=== PATIENT | female | born 1980 | race Caucasian/White ===

== ENCOUNTER 2019-11-25 20:16 | Emergency (ER) | payer MEDICAID ==
[2019-11-25] MEDS ORDERED: methylPREDNISolone Sodium Succinate 125 MG/2 ML SDV IVPUSH ONE (20:51)
[2019-11-25] MEDS ORDERED: cefTRIAXone 1 GM in Sodium Chloride 0.9% 50 ML IV ONE (20:51)
--- NOTE | 2019-11-25 20:57 | EDM.PDOC ---
ED HPI GENERAL MEDICAL PROBLEM - General Chief Complaint: ENT Problem Stated Complaint: TOOTH PAIN Time Seen by Provider: 11/25/19 20:45 Source of Information: Reports: Patient History Limitations: Reports: No Limitations - History of Present Illness INITIAL COMMENTS - FREE TEXT/NARRATIVE: 39-year-old female in a local detox center who has ongoing right maxillary dental pain and swelling despite being on clindamycin for the past week. No fevers or chills. Pain is not controlled with 600 mg of ibuprofen every 6 hours and Tylenol. She has responded well to Rocephin IV in the past. Onset: Gradual Duration: Week(s): (Ongoing problems for almost 2 weeks) Location: Reports: Face (Right maxillary facial area) Associated Symptoms: Denies: Fever/Chills, Nausea/Vomiting, Shortness of Breath Right Face/Facial Pain Score (Numeric/FACES): 8 - Related Data Allergies Allergy/AdvReac Type Severity Reaction Status Date / Time No Known Allergies Allergy Verified 11/25/19 20:28 Home Meds: Home Meds busPIRone [Buspar] 15 mg PO BID 11/25/19 [History] clindamycin HCL [Cleocin HCl] 300 mg PO TID 11/25/19 [History] Past Medical History HEENT History: Reports: Other (See Below) Other HEENT History: dental caries Cardiovascular History: Reports: Other (See Below) Other Cardiovascular History: found a 'bad spot' on her heart a while back Genitourinary History: Reports: None Neurological History: Reports: Migraines Psychiatric History: Reports: ADD, Addiction, Anxiety, Depression, PTSD Oncologic (Cancer) History: Reports: Cervix - Past Surgical History HEENT Surgical History: Reports: Adenoidectomy, Tonsillectomy Cardiovascular Surgical History: Reports: None GI Surgical History: Reports: Appendectomy Female Surgical History: Reports: D&C, Other (See Below) Other Female Surgeries/Procedures: colposcopy Oncologic Surgical History: Reports: Other (See Below) Other Oncologic Surgeries/Procedures: colposcopy Social & Family History - Tobacco Use Smoking Status *Q: Current Every Day Smoker Years of Tobacco use: 25 Packs/Tins Daily: 1 - Caffeine Use Caffeine Use: Reports: None - Recreational Drug Use Recreational Drug Use: Yes Recreational Drug Type: Reports: Methamphetamine ED ROS ENT - Review of Systems Review Of Systems: See Below Constitutional: Denies: Fever, Chills HEENT: Reports: Dental Pain Respiratory: Denies: Shortness of Breath Cardiovascular: Denies: Chest Pain GI/Abdominal: Denies: Nausea, Vomiting Skin: Reports: Other (Slight erythema over the right zygomatic area) ED EXAM, ENT - Physical Exam Exam: See Below Exam Limited By: No Limitations General Appearance: Alert, No Apparent Distress Mouth/Throat: Other (Advanced significant dental decay diffusely, she is tender over the gingiva of the right maxillary molars and canines. There is slight soft tissue swelling and tenderness over the zygomatic area of the right face but no firmness or fluctuance) Head: Facial Swelling (Right zygomatic area) Respiratory/Chest: No Respiratory Distress Course - Vital Signs Last Recorded V/S: Last Vital Signs Temp 98.7 F 11/25/19 20:31 Pulse 92 11/25/19 20:31 Resp 14 11/25/19 20:31 BP 126/72 11/25/19 20:31 Pulse Ox - Orders/Labs/Meds Meds: Medications Discontinued Medications Generic Name Dose Route Start Last Admin Trade Name Roxana PRN Reason Stop Dose Admin Ceftriaxone Sodium 1 gm/ 50 mls @ 100 mls/hr 11/25/19 20:51 11/25/19 20:58 Sodium Chloride IV 11/25/19 21:20 100 mls/hr ONETIME ONE Administration Ketorolac Tromethamine 30 mg 11/25/19 21:08 11/25/19 21:12 Toradol IVPUSH 11/25/19 21:09 30 mg ONETIME ONE Administration Methylprednisolone Sodium Succinate 125 mg 11/25/19 20:51 11/25/19 20:58 Solu-Medrol IVPUSH 11/25/19 20:52 125 mg ONETIME ONE Administration - Re-Assessments/Exams Free Text/Narrative Re-Assessment/Exam: 11/25/19 20:55 An IV was started and the patient will be given 1 g of Rocephin IV along with 125 mg of IV Solu-Medrol. She will be started on penicillin 500 mg 4 times a day and can continue the clindamycin as well. Ibuprofen can be given every 4 hours at 400 mg alternating with Tylenol, and she should return in the next 48 hours if worsening despite change in treatment. 11/25/19 21:39 Prior to leaving the patient asked for another dose of ibuprofen, but was given 30 mg of IV Toradol since we had IV access which gave her some pretty good relief. She can resume her ibuprofen schedule in 6 hours. Departure - Departure Time of Disposition: 21:37 Disposition: Home, Self-Care 01 Clinical Impression: Dental abscess, Facial cellulitis - Discharge Information Instructions: Dental Abscess, [id number] Referrals: PCP,None [Primary Care Provider] - Forms: ED Department Discharge Care Plan Goals: Continue clindamycin, add penicillin 500 mg 4 times a day and consider a local dental evaluation emergently if not improving over the next 48 hours. Ibuprofen can be given 400 mg every 4 hours alternating with Tylenol. Sepsis Event Note (ED) - Evaluation Sepsis Screening Result: No Definite Risk - Focused Exam Vital Signs: Vital Signs Temp Pulse Resp BP 11/25/19 20:31 98.7 F 92 14 126/72
[2019-11-25] MEDS ORDERED: Ketorolac 30 MG/ML SDV IVPUSH ONE (21:08)
== END 2019-11-25 21:42 | disposition home or self-care (01) ==
LOC: JP.ED 20:16
DX: K04.7 Periapical abscess without sinus (principal); L03.211 Cellulitis of face; F17.210 Nicotine dependence, cigarettes, uncomplicated; F41.9 Anxiety disorder, unspecified; Z79.899 Other long term (current) drug therapy
CPT/HCPCS: 96365; 96375; 99282; J0696; J1885; J2930; J7050